=== PATIENT | male | born 1985 | race Hispanic/Latino ===

== ENCOUNTER 2018-07-03 15:58 | Emergency (ER) | payer SELFPAY ==
[2018-07-03] MEDS ORDERED: Morphine 4 MG/ML VIAL ONE (16:53)
[2018-07-03] MEDS ORDERED: CEFAZOLIN 2 GM/50 ML BAG ONE ×2 (16:54→18:13)
== END 2018-07-03 18:55 | disposition short-term general hospital (02) ==
LOC: ERS 15:58
DX: S56.122A Laceration of flexor muscle, fascia and tendon of left index finger at forearm level, initial encounter (principal); S56.124A Laceration of flexor muscle, fascia and tendon of left middle finger at forearm level, initial encounter; S56.126A Laceration of flexor muscle, fascia and tendon of left ring finger at forearm level, initial encounter; W27.0XXA Contact with workbench tool, initial encounter; Y92.009 Unspecified place in unspecified non-institutional (private) residence as the place of occurrence of the external cause
CPT/HCPCS: 96374; 96375; J2270